=== PATIENT | female | born 1970 | race African-American/Black ===

== ENCOUNTER → 2017-01-05 | Outpatient (CLI) | payer BC, OTHER ==
--- NOTE | ~2017-01-05 | CT2 ---
[facility] A Service of [facility] RADIOLOGY TEXT RESULTS PATIENT: NING ABRAMS LOCATION: CCAT : 68 UNIT #: [id number] AGE: [address]: ARNULFO VICKERS APRN SEX: F ORDER DR: [id number] [facility]. [place], [place] [address] [id number] O MR#: [id number] Acc #: [id number] NAME: NING ABRAMS : 1970 SEX: F STUDY DATE/TIME: 01/05/2017 15:11 UNIT: [facility]AT ROOM: STUDY DESCRIPTION: CT Abd and Pelv W Cont Attending Physician: Arnulfo Vickers Aprn Referring Physician: Arnulfo Vickers Aprn Primary Care Physician: Arnulfo Vickers Aprn MEDICAL IMAGING REPORT This report is preliminary unless electronic signature is present EXAM CT of abdomen and pelvis. INDICATION Epigastric abdominal pain radiating to the left side of the abdomen. Nausea and constipation for [address] of the abdomen and pelvis with contrast. 100 mL Isovue-370 IV contrast was utilized. Coronal and sagittal reconstructions were obtained. This CT exam was performed with one or more of the following radiation dose reduction techniques: automatic exposure control, adjustment of mA and/or kV according to patient size, and iterative reconstruction. COMPARISON None available. FINDINGS The solid abdominal organs enhance normally. The gallbladder is surgically absent. No intrahepatic or extrahepatic biliary dilatation. The bowel is not dilated. There is a moderate volume of stool in the colon. The appendix is normal. Bladder is unremarkable. The uterus and ovaries are within normal limits. There are no pathologic pelvic or inguinal lymph nodes. IMPRESSION 1. No acute findings in the abdomen or pelvis. Dictated by... Jose David Sawyer M.D. THIS IS AN ELECTRONICALLY VERIFIED REPORT [facility] A Service of [facility] & [facility] RADIOLOGY TEXT RESULTS PATIENT: NING ABRAMS LOCATION: CCAT : 68 UNIT #: [id number] AGE: [address]: ARNULFO VICKERS APRN SEX: F ORDER DR: Jose David Sawyer M.D. at 01/06/2017 9:12 AM SHANIA/tanya TD: 01/05/2017 21:12 JOB #: [id number] MEDICAL IMAGING REPORT Page 1 of 1 COPY
[2017-01-05 20:31] LABS: POC - CREATININE 0.78 mg/dL (0.44-1.03); POC - GFR >60.0 mL/min (>60)
== END | disposition home or self-care (01) ==
LOC: CCAT 13:03
PROVIDERS: Nurse Practitioner Family
DX: R10.13 Epigastric pain (principal); G89.29 Other chronic pain
CPT/HCPCS: 74177; 82565; Q9967